=== PATIENT | male | born 1995 | race Caucasian/White ===

== ENCOUNTER 2021-02-10 22:02 | Emergency (ER) | payer SELFPAY ==
[2021-02-10 22:04] VITALS: BP 129/82; PULSE 77; RESP 16; TEMP 36.2; O2SAT 99; BMI 26.6
--- NOTE | 2021-02-10 22:28 | EX.ED.DYSGE1 ---
HPI History of Present Illness Chief Complaint: Back Narrative Narrative: Patient is is a 25-year-old male who states that he has noticed a mild headache in the posterior/occipital section of his scalp over the last 1 to 2 days. He states that he also noticed some muscle tension in his neck. 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 He reports that tonight while he was sitting with his arm around his he noticed some numbness and tingling into his left arm and therefore he came in for evaluation. Patient states that the symptoms have resolved at this time. PFSH PFSH Medical History no medical history no medical history Home Medications methocarbamol 1,000 mg PO Q6H PRN #56 tab 02/10/21 [Rx Last Taken Unknown] Allergy/AdvReac Type Severity Reaction Status Date / Time No Known Allergies Allergy Verified 02/10/21 22:04 Social History Smoking Status: Never smoker ROS ROS ED Constitutional Constitutional ED: Denies chills or fever(s) Eyes Eyes: Denies change in vision ENT ENT ED: Denies sore throat Cardiovascular Cardiovascular: Denies chest pain Respiratory/Chest Respiratory/Chest: Denies cough or dyspnea Gastrointestinal Gastrointestinal: Denies abdominal pain, diarrhea, nausea or vomiting Genitourinary Genitourinary ED: Denies dysuria Musculoskeletal Musculoskeletal: Reports neck pain; Denies myalgias Integumentary Denies rash Neurologic Neurologic: Reports headache(s) and paresthesias Hematologic/Lymphatic Hematologic/Lymphatic: Denies easy bleeding or easy bruising EXAM Physical Exam Const Vital Signs: 02/10/21 22:04 Temperature 97.1 F L Temperature Source Temporal Pulse Rate 77 Respiratory Rate 16 Blood Pressure 129/82 H Blood Pressure Mean 97 Pulse Ox 99 Oxygen Delivery Method Room Air Positive well nourished and well developed General Appearance ED: well developed HEENT Reports moist mucous membranes HEENT Narrative: No signs of infection in the posterior pharynx Eyes PERRL and EOMs intact bilaterally Neck supple Neck Narrative: No bony deformity or step-off of the cervical spine no midline pain with palpation. There is tension and spasm noted over the left paracervical muscle belly region that worsens with side bending and rotation. No meningeal signs. Negative Spurling sign bilaterally Resp normal respiratory effort and clear to auscultation bilaterally Cardio regular rate and regular rhythm Back/Spine Back/Spine Narrative: No bony deformity or step-off of the thoracic or lumbar spine no midline pain with palpation Extremity normal to inspection Extremity Narrative: Bilateral upper extremities are neurovascularly intact Neuro oriented x3 and CN's II-XII intact bilaterally Neuro Narrative: Cranial nerves II through XII are grossly intact there are no focal neurologic deficit. No pronator drift no dysmetria no truncal ataxia NIH stroke scale score of 0. Sensorium / Orientation: alert Motor Exam: strength 5/5 throughout Psych mental status grossly normal Skin no rashes or lesions noted MDM MDM MDM Narrative Medical decision making narrative: Patient presented with stable vitals and a normal neurologic exam. He did not have midline neck pain he had no meningeal signs and no focal neurologic deficit. Clinically patient has a strain to his sternocleidomastoid muscle with spasm that led to superficial nerve impingement. We discussed possible blood work and imaging studies at this time but as symptoms have spontaneous resolved and his evaluation is nonfocal patient does not want any testing obtained. Therefore we will place him on symptomatic medications and patient is safe for discharge. Discharge Plan Triage Chief Complaint: Back ED Provider: Umer Rodriguez Dx/Rx/DC Orders Clinical Impression: Acute cervical myofascial strain, Pinched nerve in neck Instructions: ED Neck Sprain or Strain, ED Radiculopathy, Cervical Prescriptions: New methocarbamol 500 mg tablet 1,000 mg PO Q6H PRN (Reason: Muscle pain/spasm) Qty: 56 RF: 0 Primary Care Provider: Care Physician,No Primary Referrals: Fast,Ade, DO [NON-STAFF] - 1-2 Weeks Care Physician,No Primary [Primary Care Provider] - Disposition Disposition: Home, Self Care
[2021-02-10] MEDS: Orphenadrine 60 MG/2 ML Ampul IM (22:46)
[2021-02-10] MEDS: Ketorolac 30 MG/ML Syringe IM (22:47)
[2021-02-10 23:05] VITALS: BP 120/60; PULSE 72; RESP 16
== END 2021-02-10 23:07 | disposition home or self-care (01) ==
PROVIDERS: Emergency Provider Emergency Medicine
DX: S16.1XXA Strain of muscle, fascia and tendon at neck level, initial encounter (principal); X58.XXXA Exposure to other specified factors, initial encounter
CPT/HCPCS: 96372; 99282

== ENCOUNTER 2021-02-20 15:38 | Emergency (ER) | payer OTHER, SELFPAY ==
[2021-02-20 15:38] VITALS: BP 132/91; PULSE 102; RESP 16; TEMP 35.7; O2SAT 100; BMI 25.7
--- NOTE | 2021-02-20 15:51 | EKG12_ITS ---
Test Reason : CP Blood Pressure : / mmHG Vent. Rate : 100 BPM Atrial Rate : 100 BPM P-R Int : 164 ms QRS Dur : 098 ms QT Int : 322 ms P-R-T Axes : 059 063 050 degrees QTc Int : 415 ms Normal sinus rhythm Nonspecific ST abnormality Abnormal ECG Confirmed by SHELBI HAINES, DANIELLE ([id number]), photographic editor MANUEL SMITH ([id number]) on 02/21/2021 1:54:35 PM Referred By: GEORGES Confirmed By:DANIELLE MARIO MD
--- NOTE | 2021-02-20 16:06 | NURSING ---
NO OLD EKGS
[2021-02-20 16:36] LABS: Absolute Lymphocyte Count 1.47 X10^3/uL (0.83-4.51); Absolute Neutrophil Count 5.5 X10^3/uL (2.0-7.7); Basophil# 0.06 X10^3/uL; Basophil% 0.8 % (0-1); Eosinophil# 0.08 X10^3/uL; Eosinophils% 1.1 % (0-5); Hematocrit 42.9 % (40-54); Hemoglobin 14.7 g/dL (13.0-16.5); Lymphocyte # 1.47 X10^3/ul (0.83-4.51); Lymphocyte % 19.7 % (19-41); Mean Corp Hgb Conc 34.3 g/dL (32-36); Mean Corpuscular Hgb 29.9 pg (27.0-32.0); Mean Corpuscular Volume 87.2 fL (80-94); Mean Platelet Vol. 8.8 fl (6.2-12.0); Monocyte# 0.38 X10^3/uL; Monocyte% 5.1 % (0-10); NRBC Flagged by Analyzer 0 % (0-5); Neutrophil # 5.47 X10^3/uL (2.7-7.7); Platelet Count 303 K/mm3 (150-450); RBC Distribution Width CV 11.8 % (11.6-14.6); RBC Distribution Width SD 37.3 fl (35.1-43.9); Red Blood Count 4.92 M/mm3 (4.6-6.2); White Blood Count 7.5 K/mm3 (4.4-11.0)
--- NOTE | 2021-02-20 16:46 | RAD_ITS ---
STUDY: X-RAY CHEST REASON FOR EXAM: Male, 25 years old. chest pain TECHNIQUE: AP portable COMPARISON: None. FINDINGS: The lungs are clear and expanded. There is no demonstrated pleural abnormality. Normal size heart. Normal mediastinum and viki. Normal visualized pulmonary arteries. Normal visualized aortic arch and descending thoracic aorta. Normal visualized thoracic spine. Normal visualized ribs, clavicles, and shoulders. There is no demonstrated abnormality of the visualized soft tissue structures of the upper abdomen. RAD/Chest 1 View (Portable) IMPRESSION: Normal x-ray examination of the chest. Electronically Signed: Edmund Huffman MD at 17:07 EST , Service support ,
[2021-02-20 17:00] LABS: Anion Gap 6 (5-15); BUN 13 mg/dL (7-18); BUN/Creat Ratio 13.8 RATIO (10-20); Calcium,Total 9.7 mg/dL (8.5-10.1); Chloride 107 mmol/L (98-107); Creatinine, Serum 0.94 mg/dL (0.70-1.30); EST Glomerular Filtration Rate 104 mL/min (>60); Est Glom Filt Rate - Afr Amer 126 mL/min (>60); Estimated Creatinine Clearance 130.17 ml/min; Glucose 98 mg/dL (74-106); Sodium Level 141 mmol/L (136-145); Troponin-I HS 3 pg/mL (3.0-78.0)
--- NOTE | 2021-02-20 19:09 | EDS_ITS ---
HPI History of Present Illness Chief Complaint: Chest Pain Informant: patient Onset/Context/Timing Onset: Today Timing: Waxes and wanes Quality: Positive for Sharp Location: Left Chest Current Severity: Mild Maximum Severity: Moderate Narrative Narrative: Patient presents with sharp pain to the left upper chest wall that is intermittent in nature. He states it seems to be worse with movement of his left arm. It is also worse with a deep breath. He does not particularly feel short of breath. He denies any recent injury or trauma. PFSH PFSH Medical History no medical history no medical history Home Medications methocarbamol 1,000 mg PO Q6H PRN #56 tab 02/10/21 [Rx Last Taken Unknown] Allergy/AdvReac Type Severity Reaction Status Date / Time No Known Allergies Allergy Verified 02/20/21 15:40 Social History Smoking Status: Never smoker ROS ROS ED Constitutional Constitutional ED: Denies chills or fever(s) Eyes Eyes: Denies change in vision ENT ENT ED: Denies sore throat Cardiovascular Cardiovascular: Reports chest pain Respiratory/Chest Respiratory/Chest: Denies cough or dyspnea Gastrointestinal Gastrointestinal: Denies abdominal pain, diarrhea, nausea or vomiting Musculoskeletal Musculoskeletal: Denies back pain Integumentary Denies rash Neurologic Neurologic: Denies weakness Allergic/Immunologic Allergic/Immunologic ED: Denies urticaria EXAM Physical Exam Const Vital Signs: 02/20/21 15:38 02/20/21 18:36 02/20/21 19:35 Temperature 96.2 F L Temperature Source Temporal Pulse Rate 102 H 82 Respiratory Rate 16 16 Respiratory Effort Normal Blood Pressure 132/91 H 117/73 Blood Pressure Mean 104 87 Pulse Ox 100 98 Oxygen Delivery Method Room Air Room Air Room Air Positive well nourished and well developed General Appearance ED: well developed HEENT Reports normocephalic and head/scalp atraumatic Eyes PERRL and EOMs intact bilaterally Neck supple Chest Wall inspection of chest normal and palpation of chest normal Resp normal respiratory effort and clear to auscultation bilaterally Cardio regular rate and regular rhythm GI normal to inspection, nondistended, normoactive bowel sounds Palpation: soft Extremity normal to inspection Neuro oriented x3 and no sensory deficits noted Sensorium / Orientation: alert Motor Exam: strength 5/5 throughout Psych mental status grossly normal Skin no rashes or lesions noted Heart Score History: Slightly/Non-Suspicious ECG: Normal Age: </= 45 years Risk Factors: No Risk Factors Troponin: </= Normal Limit Score: 0 MDM MDM MDM Narrative Medical decision making narrative: Chest x-ray, EKG, lab work obtained. Lab Data Attestation: I reviewed the patient's lab results. Labs: Laboratory Results - last 24 hr 02/20/21 02/20/21 02/20/21 16:25 16:25 19:15 WBC 7.5 RBC 4.92 Hgb 14.7 Hct 42.9 MCV 87.2 MCH 29.9 MCHC 34.3 RDW Std Deviation 37.3 RDW Coeff of Ibrahima 11.8 Plt Count 303 MPV 8.8 Immature Gran % (Auto) 0.300 Neut % (Auto) 73.0 H Lymph % (Auto) 19.7 [place] % (Auto) 5.1 Eos % (Auto) 1.1 Baso % (Auto) 0.8 Absolute Neuts (auto) 5.5 Absolute Lymphs (auto) 1.47 Nucleated RBC % 0 D-Dimer Quant (PE/DVT) Sodium 141 Potassium 4.0 Chloride 107 Carbon Dioxide 28.0 Anion Gap 6 BUN 13 Creatinine 0.94 Estim Creat Clear Calc 130.17 Est GFR (MDRD) Af Amer 126 Est GFR (MDRD) Non-Af 104 BUN/Creatinine Ratio 13.8 Glucose 98 Calcium 9.7 Troponin I High Sens 3 < 3 L 02/20/21 19:15 WBC RBC Hgb Hct MCV MCH MCHC RDW Std Deviation RDW Coeff of Ibrahima Plt Count MPV Immature Gran % (Auto) Neut % (Auto) Lymph % (Auto) [place] % (Auto) Eos % (Auto) Baso % (Auto) Absolute Neuts (auto) Absolute Lymphs (auto) Nucleated RBC % D-Dimer Quant (PE/DVT) <= 0.27 Sodium Potassium Chloride Carbon Dioxide Anion Gap BUN Creatinine Estim Creat Clear Calc Est GFR (MDRD) Af Amer Est GFR (MDRD) Non-Af BUN/Creatinine Ratio Glucose Calcium Troponin I High Sens Radiography Chest X-Ray - ED: 1 View, Read by ED Physician, Normal, Heart, Lungs and Mediastinum Diagnostic Testing: Clinical Impression(s) from Imaging Studies Chest X-Ray 02/20/21 16:46 IMPRESSION: Normal x-ray examination of the chest. Electronically Signed: Edmund Huffman MD at 17:07 EST , Service support , EKG Initial EKG: Attestation: I personally reviewed and interpreted this EKG as follows: Interpretation: Sinus Rhythm (Sinus at 100 with no acute ischemia.) Treatment and Re-Evaluation Comments:: On repeat evaluation patient resting comfortably. Lab work u nremarkable. Two negative troponins are obtained. D-dimer is negative. I believe the patient likely has a strained muscle causing his symptoms. He will take anti-inflammatories. Discharge Plan Triage Chief Complaint: Chest Pain ED Provider: Aisha Calderon Dx/Rx/DC Orders Clinical Impression: Acute chest wall pain Instructions: ED Chest Pain, Noncardiac Prescriptions: No Action methocarbamol 500 mg tablet 1,000 mg PO Q6H PRN (Reason: Muscle pain/spasm) Qty: 56 RF: 0 Primary Care Provider: Care Physician,No Primary Referrals: Care Physician,No Primary [Primary Care Provider] - Disposition Disposition: Home, Self Care
[2021-02-20 19:35] VITALS: BP 117/73; PULSE 82; RESP 16; O2SAT 98
[2021-02-20 19:41] LABS: Troponin-I HS < 3 pg/mL (3.0-78.0)
[2021-02-20 19:58] LABS: D-Dimer Quantitative (DVT/PE) <= 0.27 FEU/ug/m (0.27-0.49)
[2021-02-20 20:25] VITALS: BP 114/75; PULSE 72; RESP 16; O2SAT 98
== END 2021-02-20 20:26 | disposition home or self-care (01) ==
PROVIDERS: Emergency Medicine; Emergency Provider Emergency Medicine
DX: R07.89 Other chest pain (principal)
CPT/HCPCS: 71045; 80048; 84484; 85025; 85379; 93005; 99283; A4216

== ENCOUNTER 2021-05-29 22:10 | Emergency (ER) | payer OTHER, SELFPAY ==
[2021-05-29 22:10] VITALS: BP 116/65; PULSE 71; RESP 16; TEMP 36.6; O2SAT 100; BMI 27.8
--- NOTE | 2021-05-29 22:19 | RAD_ITS ---
INDICATION: chest pain EXAMINATION/TECHNIQUE: X-RAY - XR Chest 1 View COMPARISON: 02/20/2021. FINDINGS: The lungs are clear. The cardiomediastinal silhouette is unremarkable. No pleural effusion or pneumothorax. No acute osseous abnormalities. RAD/Chest 1 View (Portable) IMPRESSION: No acute radiographic abnormalities. Electronically Signed: Amandeep Hutchins MD at 23:51 EDT ,
--- NOTE | 2021-05-29 22:19 | EKG12_ITS ---
Test Reason : CP Blood Pressure : / mmHG Vent. Rate : 071 BPM Atrial Rate : 071 BPM P-R Int : 152 ms QRS Dur : 098 ms QT Int : 352 ms P-R-T Axes : 048 060 037 degrees QTc Int : 382 ms Normal sinus rhythm with sinus arrhythmia Normal ECG Confirmed by LOVELY HAINES, JARVIS ([id number]), primer expeditor and drier MANUEL SMITH ([id number]) on 05/31/2021 9:38:24 AM Referred By: KATHE Confirmed By:JARVIS MURRY MD
--- NOTE | 2021-05-29 22:22 | ED.VIS.CHEST ---
HPI History of Present Illness Chief Complaint: Chest Pain Detail of Chief Complaint: Pain off and on for 3 months Informant: patient Onset/Context/Timing Current Severity: 06/24 Narrative Narrative: Patient presents to the emergency department complaining of chest discomfort that he is had off and on for the last 3 months. Pain does not seem to be exertional. Describes it across his chest and at times in the upper abdomen. He said mild nausea at times but no vomiting. He denies hematemesis. He denies black tarry stools. He denies recent travel or surgery. No history of PE or DVT. No family history of heart disease. Patient denies any injury or trauma to his chest wall. Pain at times is sharp and worse with deep breath. At times the pain will be felt into his arms. No history of peptic ulcer disease. Prior Similar Symptoms: Yes PFSH PFSH Home Medications lansoprazole [Prevacid] 30 mg PO DAILY #14 cap 05/29/21 [Rx Last Taken Unknown] Allergy/AdvReac Type Severity Reaction Status Date / Time No Known Allergies Allergy Verified 02/20/21 15:40 Social History Smoking Status: Never smoker ROS ROS ED Review of Systems ROS Unobtainable: other Constitutional Constitutional ED: Reports lethargy; Denies chills, fever(s), sweats or weight loss Eyes Eyes: Denies blurry vision, change in vision or diplopia ENT ENT ED: Denies rhinorrhea or sore throat Cardiovascular Cardiovascular: Reports chest pain; Denies orthopnea or racing heartbeat Respiratory/Chest Respiratory/Chest: Reports dyspnea and dyspnea on exertion; Denies cough, orthopnea or sputum Gastrointestinal Gastrointestinal: Reports abdominal pain and nausea; Denies diarrhea or vomiting Genitourinary Genitourinary ED: Denies dysuria, hematuria or urinary frequency Musculoskeletal Musculoskeletal: Denies arthralgias, back pain, myalgias or neck pain Integumentary Denies abscess, Abrasions or rash Neurologic Neurologic: Denies headache(s) or weakness Psychiatric Psychiatric: Denies anxiety, depression or suicidal thoughts Endocrine Endocrinology: Denies polydipsia, polyphagia or polyuria Hematologic/Lymphatic Hematologic/Lymphatic: Denies easy bleeding, easy bruising or lymphadenopathy Allergic/Immunologic Allergic/Immunologic ED: Denies mouth swelling, tongue swelling or urticaria EXAM Physical Exam Const Vital Signs: 05/29/21 22:10 05/29/21 22:16 Temperature 97.8 F Temperature Source Temporal Pulse Rate 71 Respiratory Rate 16 Respiratory Effort Normal Blood Pressure 116/65 Blood Pressure Mean 82 Pulse Ox 100 Oxygen Delivery Method Room Air Positive well nourished and well developed General Appearance ED: well developed and NAD HEENT Reports TM's clear and moist mucous membranes normocephalic and atraumatic; Negative for trauma or tenderness Tympanic Membrane ED: Yes TM's clear Eyes PERRL and EOMs intact bilaterally General Eye ED: Negative for pale conjunctiva or scleral icterus Neck no lymphadenopathy, supple and no JVD General: Negative for tenderness Chest Wall inspection of chest normal and palpation of chest normal Chest: Negative for tenderness Resp normal respiratory effort and clear to auscultation bilaterally Effort and Inspection: Negative for respiratory distress or pain with movement Auscultation: Negative for rhonchi, wheezes or diminished lung sounds Cardio regular rate, regular rhythm, S1 normal heart sound, S2 normal heart sound and no murmurs Peripheral Pulses: pulses 2+ throughout GI normal to inspection, nondistended, normoactive bowel sounds, soft to palpation, non-tender, non-distended and no masses Back/Spine no CVA tenderness and no thoracic nor lumbar tenderness Extremity normal to inspection General Extremety ED: Negative for edema General Extremity: Negative for edema Neuro oriented x3, CN's II-XII intact bilaterally, no sensory deficits noted and gait normal Sensorium / Orientation: awake, alert, oriented to person, oriented to place and oriented to time Motor Exam: strength 5/5 throughout and strength abnormal Psych mental status grossly normal Skin no rashes or lesions noted and no wounds Heart Score History: Slightly/Non-Suspicious ECG: Normal Age: </= 45 years Risk Factors: No Risk Factors Troponin: </= Normal Limit Score: 0 MDM MDM MDM Narrative Medical decision making narrative: IV line established on arrival. While in the department his discomfort resolved without any treatment. Lab work-up was unremarkable. EKG was unremarkable. D-dimer was normal. Chest x-ray interpreted by myself as no acute disease process. At this point etiology of patient's chest pain unclear. He did ask about anxiety as he has had increased stress at work. Been that he has had some upper abdominal discomfort as well I will put him on Prevacid for 2 weeks and referred to primary care physician for follow-up. I do not feel he is having acute coronary syndrome. Lab Data Attestation: I reviewed the patient's lab results. Labs: Laboratory Results - last 24 hr 05/29/21 05/29/21 05/29/21 22:25 22:25 22:25 WBC 9.9 RBC 4.60 Hgb 14.4 Hct 40.1 MCV 87.2 MCH 31.3 MCHC 35.9 RDW Std Deviation 37.7 RDW Coeff of Ibrahima 11.9 Plt Count 166 MPV 10.7 Immature Gran % (Auto) 0.300 Neut % (Auto) 63.2 Lymph % (Auto) 23.9 [place] % (Auto) 7.0 Eos % (Auto) 5.2 H Baso % (Auto) 0.4 Absolute Neuts (auto) 6.3 Absolute Lymphs (auto) 2.38 Nucleated RBC % 0 ESR 22 H D-Dimer Quant (PE/DVT) Cancelled Sodium 142 Potassium 3.6 Chloride 111 H Carbon Dioxide 26.0 Anion Gap 5 BUN 14 Creatinine 1.00 Estim Creat Clear Calc 117.61 Est GFR (MDRD) Af Amer 118 Est GFR (MDRD) Non-Af 98 BUN/Creatinine Ratio 14.0 Glucose 90 Calcium 9.5 Total Bilirubin 0.40 Direct Bilirubin 0.12 AST 20 ALT 23 Alkaline Phosphatase 54 Troponin I High Sens 3 Total Protein 7.7 Albumin 3.9 Globulin 3.8 Lipase 59 L 05/29/21 22:52 WBC RBC Hgb Hct MCV MCH MCHC RDW Std Deviation RDW Coeff of Ibrahima Plt Count MPV Immature Gran % (Auto) Neut % (Auto) Lymph % (Auto) [place] % (Auto) Eos % (Auto) Baso % (Auto) Absolute Neuts (auto) Absolute Lymphs (auto) Nucleated RBC % ESR D-Dimer Quant (PE/DVT) < 0.27 L Sodium Potassium Chloride Carbon Dioxide Anion Gap BUN Creatinine Estim Creat Clear Calc Est GFR (MDRD) Af Amer Est GFR (MDRD) Non-Af BUN/Creatinine Ratio Glucose Calcium Total Bilirubin Direct Bilirubin AST ALT Alkaline Phosphatase Troponin I High Sens Total Protein Albumin Globulin Lipase Radiography Chest X-Ray - ED: 1 View Diagnostic Testin view chest tract interpreted by myself as no acute disease process. Official report from radiology pending. EKG Initial EKG: Attestation: I personally reviewed and interpreted this EKG as follows: Comments: Normal sinus rhythm with ventricular rate of 71 bpm with occasional PACs. Discharge Plan Triage Chief Complaint: Chest Pain ED Provider: Trung Lara Dx/Rx/DC Orders Clinical Impression: Chest pain Instructions: ED Chest Pain, Uncertain Cause Prescriptions: New lansoprazole [Prevacid] 30 mg capsule,delayed release(DR/EC) 30 mg PO DAILY Qty: 14 RF: 0 Primary Care Provider: Care Physician,No Primary Referrals: Ant Fajardo MD [STAFF PHYSICIAN] - 3-5 Days Care Physician,No Primary [Primary Care Provider] - Disposition Disposition: Home, Self Care
[2021-05-29] MEDS: 0.9% Normal Saline 1,000 ML 150 ML IV (22:33)
[2021-05-29 22:37] LABS: Erythrocyte Sedimentation Rate 22 mm/hr (0-20)
[2021-05-29 22:39] LABS: Absolute Lymphocyte Count 2.38 X10^3/uL (0.83-4.51); Absolute Neutrophil Count 6.3 X10^3/uL (2.0-7.7); Basophil# 0.04 X10^3/uL; Basophil% 0.4 % (0-1); Eosinophil# 0.52 X10^3/uL; Eosinophils% 5.2 % (0-5); Hematocrit 40.1 % (40-54); Hemoglobin 14.4 g/dL (13.0-16.5); Lymphocyte # 2.38 X10^3/ul (0.83-4.51); Lymphocyte % 23.9 % (19-41); Mean Corp Hgb Conc 35.9 g/dL (32-36); Mean Corpuscular Hgb 31.3 pg (27.0-32.0); Mean Corpuscular Volume 87.2 fL (80-94); Mean Platelet Vol. 10.7 fl (6.2-12.0); NRBC Flagged by Analyzer 0 % (0-5); Neutrophil # 6.27 X10^3/uL (2.7-7.7); Neutrophil % 63.2 % (47-70); Platelet Count 166 K/mm3 (150-450); RBC Distribution Width CV 11.9 % (11.6-14.6); RBC Distribution Width SD 37.7 fl (35.1-43.9); White Blood Count 9.9 K/mm3 (4.4-11.0)
[2021-05-29 22:52] LABS: AST(SGOT) 20 U/L (15-37); Alanine Aminotransfer ALT/SGPT 23 U/L (16-61); Albumin, Serum 3.9 g/dL (3.2-5.0); Alkaline Phosphatase 54 U/L (45-117); Anion Gap 5 (5-15); BUN 14 mg/dL (7-18); Bilirubin, Direct 0.12 mg/dL (0.00-0.30); Calcium,Total 9.5 mg/dL (8.5-10.1); Chloride 111 mmol/L (98-107); EST Glomerular Filtration Rate 98 mL/min (>60); Est Glom Filt Rate - Afr Amer 118 mL/min (>60); Estimated Creatinine Clearance 117.61 ml/min; Globulin 3.8 g/dL (2.2-4.2); Glucose 90 mg/dL (74-106); Lipase 59 U/L (73-393); Potassium 3.6 mmol/L (3.5-5.1); Protein, Total 7.7 g/dL (6.4-8.2); Sodium Level 142 mmol/L (136-145); Troponin-I HS 3 pg/mL (3.0-78.0)
[2021-05-29 23:16] LABS: D-Dimer Quantitative (DVT/PE) < 0.27 FEU/ug/m (0.27-0.49)
[2021-05-29 23:33] VITALS: BP 115/74; PULSE 62; RESP 17; O2SAT 98
== END 2021-05-29 23:34 | disposition home or self-care (01) ==
PROVIDERS: Emergency Provider Emergency Medicine; Visit Provider Emergency Medicine
DX: R07.9 Chest pain, unspecified (principal)
CPT/HCPCS: 71045; 80048; 80076; 83690; 84484; 85025; 85379; 85652; 87811; 93005; 99284; J7030; A4216